=== PATIENT | male | born 2000 | race Caucasian/White ===

== ENCOUNTER 2025-04-19 02:43 | Emergency (ER) | payer MEDICAID ==
[~2025-04-19] VITALS: Ht 175.3 cm; Wt 76.0 kg
--- NOTE | 2025-04-19 02:52 | ELECTROCARDIOGRAPH REPORT ---
[facility] Test Date: 2025-04-19 Test Time: 02:51:53 Pat Name: DARIUS DIEHL Department: EMERGENCY ROOM Room: Gender: M Welt Insole Channeler: KYMBERLY : 2000 Requested By: TEZ VARGAS Order Number: [id number] Reading MD: Dr. Pk Enrique Measurements Intervals Davy Rate: 132 P: 75 NE: 136 QRS: 105 QRSD: 86 T: 1 QT: 295 QTc: 437 Interpretive Statements Sinus tachycardia Borderline right axis deviation Borderline T abnormalities, anterior leads Electronically Signed On 04-21-2025 21:15:[address] Pk Enrique Please click the below link to view image of tracing.
--- NOTE | 2025-04-19 03:21 | RADIOLOGY REPORT ---
CHEST RADIOGRAPH INDICATION: CP TECHNIQUE: Single frontal view of the chest was obtained COMPARISON: None FINDINGS: Lines and Tubes: None Lungs: Clear Pleura: No effusion. No pneumothorax. Cardiomediastinal contours: Unremarkable Bones: Unremarkable IMPRESSION: 1. No acute disease.
[2025-04-19 03:22] LABS: MEAN PLATELET VOLUME 7.4 FL (7.4-10.4); RED CELL DISTRIBUTION WIDTH 13.1 % (11.5-14.5)
[2025-04-19 03:26] LABS: INFLUENZA TYPE A ANTIGEN RAPID NEGATIVE (Negative); INFLUENZA TYPE B ANTIGEN RAPID NEGATIVE (Negative)
[2025-04-19] MEDS: normal saline 1000ml 1,000 ML IV ONE (03:33)
--- NOTE | 2025-04-19 03:40 | Physician Documentation ---
History of Present Illness ~ General Chief Complaint: Dizziness Stated Complaint: BODYACHES A ALS Time Seen by MD: 02:56 History of Present Illness Initial Comments CC: Body aches HPI: 24-year-old [place] stating that this evening a few hours prior to arrival he developed all over body aches, felt shaky in warm. He denies any cough, no vomiting, no abdominal pain, he denies any drug use, no burning with urination, no blood in urine or stool. No head or neck pain. No chest pain or shortness of breath. He states he did get a COVID vaccination in the past and did not get a flu shot this year. He does have a bandage on his right hand, he states there is a rash at his right hand that was treated with antibiotic ointment and then wrapped. He states his tetanus shot is up-to-date. Patient describes the body aches as diffuse muscle pains. ROS: Constitutional: Positive for feeling achy, subjective fever HENT: Negative for sore throat and rhinorrhea. Eyes:Negative for pain and redness. Respiratory: Negative for cough and shortness of breath. Cardiovascular: Negative for chest pain and palpitations. Gastrointestinal: Negative for nausea and vomiting. Genitourinary: Negative for dysuria and hematuria. Musculoskeletal: Negative for acute back pain and acute neck pain. Skin: Negative for rash and pruritus. Neurological: Negative for acute numbness or weakness. PHYSICAL EXAM: General Appearance: WDWN, No Distress, Cooperative, Awake Head: No Trauma. Scalp Normal Eyes: Lids normal, conjunctiva normal ENT: Mucous membranes normal, facial bones normal, lips normal, oropharynx normal Neck: Normal active FROM, non-tender with ROM, no meningeal signs, No JVD Back: Normal active FROM, non-tender with ROM, no CVAT Resp: Normal resp rate, normal flow, lungs clear to auscultation, no resp distress, no retractions Heart: Reg rhythm, no murmur Abd: Soft, non-tender, no guarding, no rebound, no mass Musc/Skel: No chest wall tenderness, Normal ROM UE's and LE's, No acute bone/joint abnormality or tenderness Skin: Right hand intertriginous area between right index and right middle finger with 1 x 2 cm area of erythema and scabbing no fluctuance no exudative Extremities: No edema Neuro: Motor 5/5 & Symmetric Bilat, CN 2-12 grossly intact and symmetric bilat. Oriented x4, speech normal. Psych: Mood & Affect: Normal, Depressed: 0, Awareness & insight normal ER COURSE -I have reviewed the triage note. History obtained from the patient -All Labs, if applicable, independently reviewed by me I checked in EMR for old Records Additional REPEAT EVALUATION: Results and plan of care discussed with patient, patient understands and is agreeable to plan and disposition MDM: 24-year-old male presents complaining of flu-like symptoms found to have right hand healing wound that we will be rib bandaged no evidence of sepsis lungs clear on physical exam doubtful lobar pneumonia, withdrawal also in the differential, patient is nontoxic and hemodynamically stable Additional REPEAT EVALUATION: 0340 Results and plan of care discussed with patient, patient understands and is agreeable to plan and disposition. Limited: (2 points from category 1 or one discussion with independent historian). Moderate: one of the following (3 points from category 1, or independent interpretations of tests performed by another physician/QHP: (ct,ecg,rad [place],rhythm strip,or comparing xray to prior), or discussion of tests or management with other professionals (not including [facility] ER doc/PA or family members.) High: (2 of 3 from : category 1 (3 points), independent interpretation of tests performed by another physician/QHP, and discussion of tests or management). Prior [facility] ER notes reviewed: Category 1: Number of Tests ordered or reviewed: [] Number of Independent Historians: [] Non [facility] ER notes reviewed: [] 1. 2. 3. Category 2: I independently interpreted the [] Category 3: Discussion with other professionals: [] [employer] Problems related to: [ ] Challenges with access to Primary Care or Outpatient Speciality Care [ ] Psychosocial circumstances such as mental health issues [ ] Social environment: such as violence or substance abuse [ ] Housing and economic circumstances: such as homelessness [ ] Employment and unemployment: such as recently loss of employment [ ] Occupational exposures or injuries: [ ] Accessing ED outside of normal PCP hours [ ] Language barrier: [ ] Primary support group, including family circumstances: Prescription Mangement: Rx strength meds given in ED: [] Rx given: [] [] I have reviewed the patient's medications and I do not recommend any changes at this time. (Applies only if checked) Comorbid conditions: [] Testing or interventions considered: [] Portions of this chart may have been created with [employer] voice recognition software. Occasional wrong-word or sound-alike substitutions may have occurred due to the inherent limitations of voice recognition software. Please read the chart carefully and recognize, using context, where these substitutions have occurred. Medication Reconciliation Allergies: Coded Allergies: No Known Allergies (Unverified , 04/19/25) Physical Exam Physical Exam Vital Signs: Temperature: 98.6, Source: Temporal, Heart Rate: 121, Respiratory Rate: 15, BP: 126/91, Pulse Oximetry: 97, Weight: 76.000 Progress Results/Orders Results/Orders Orders - TEZ VARGAS MD Chest,Single View (04/19/25 02:49) Monitor (04/19/25 02:49) Saline Lock (04/19/25 02:49) Oxygen (04/19/25 02:49) Covid19 Binax Poc Result Entry (04/19/25 02:58) Completed Orders - TEZ VARGAS MD Chest,Single View (04/19/25 02:49) Cbc/Diff (04/19/25 02:49) BMP (04/19/25 02:49) PBNP (04/19/25 02:49) Electrocardiogram (04/19/25 02:49) Hs Troponin I W Calculations (04/19/25 02:49) Drug Screen, Urine (04/19/25 02:56) Normal Saline 1000ml (0.9% Sodium Chlori (04/19/25 03:00) Influenza Type A&B Rapid Test (04/19/25 02:58) Urinalysis (04/19/25 03:42) Acetaminophen 325mg Tablet (Tylenol Tabl (04/19/25 05:05) Medications Received in ER Medications (Trade) Dose Ordered Sig/Marino Route PRN Reason Start Time Stop Time Status Last Admin Dose Admin Sodium Chloride 1,000 ml @ 1,000 mls/hr ONCE ONCE IV 04/19/25 03:00 04/19/25 03:59 DC 04/19/25 03:33 1,000 MLS/HR (Tylenol tablet) 650 mg ONCE ONCE PO 04/19/25 05:05 04/19/25 05:06 DC 04/19/25 05:12 650 MG Vital Signs 04/19/25 02:59 Temp 98.6 Pulse 121 Resp 15 B/P (MAP) 126/91 Pulse Ox 97 Laboratory Tests Test 04/19/25 03:05 04/19/25 04:50 White Blood Count 15.7 H Red Blood Count 5.22 Hemoglobin 15.6 Hematocrit 45.8 Mean Corpuscular Volume 87.6 Mean Corpuscular Hemoglobin 29.9 Mean Corpuscular Hemoglobin Concent 34.1 Red Cell Distribution Width 13.1 Platelet Count 291 Mean Platelet Volume 7.4 Neutrophils (%) (Auto) 85.7 H Lymphocytes (%) (Auto) 6.5 L Monocytes (%) (Auto) 7.5 Eosinophils (%) (Auto) 0 Basophils (%) (Auto) 0.3 Neutrophils # (Auto) 13.5 H Lymphocytes # (Auto) 1.0 L Monocytes # (Auto) 1.2 H Eosinophils # (Auto) 0.0 Basophils # (Auto) 0.0 CBC Comment Sodium Level 140 Potassium Level 4.0 Chloride Level 101 Carbon Dioxide Level 30.1 Anion Gap 9 Blood Urea Nitrogen 7 Creatinine 1.10 Estimated GFR/1.73 m2 82 BUN/Creatinine Ratio 6.4 L Glucose Level 119 H Calcium Level 9.3 Troponin I High Sensitivity 4 Pro-B-Type Natriuretic Peptide < 30 Albumin 4.3 Chemistry Comments Influenza Type A Antigen Negative Influenza Type B Antigen Negative SARS-CoV-2 Antigen (Rapid) Negative Urine Specimen Description Cln catch midstream Urine Color Yellow Urine Clarity Clear Urine pH 7.0 Urine Specific [place] 1.010 Urine Protein Negative Urine Glucose (UA) Negative Urine Ketones Negative Urine Occult Blood Negative Urine Nitrite Negative Urine Bilirubin Negative Urine Urobilinogen 0.2 Urine Leukocyte Esterase Negative Volume Urine Centrifuged 10 ml Urine Comment Urine Opiates Screen Negative Urine Methadone Screen Negative Urine Fentanyl Screen Negative Urine Barbiturates Screen Negative Urine Phencyclidine Screen Negative Urine Amphetamines Screen Negative Urine Benzodiazepines Screen Negative Urine Cocaine Screen Negative Urine Cannabinoids Screen Negative Drug Screen Comment Medical Decision Making Additional information obtaine: other Findings OTHER Differential Diagnosis OTHER Departure Time of Disposition: 06:21 Disposition: 01 HOME / SELF CARE / HOMELESS Impression: Primary Impression: Flu-like symptoms Additional Impression: Infection of hand Condition: Stable Discharge Instructions: Cellulitis, Adult, [id number], Weakness, [id number] Referrals: NO PRIMARY CARE PROVIDER (PCP) Prescriptions Sulfamethoxazole/Trimethoprim (Bactrim Ds Tablet) 800 Mg-160 Mg Tablet 1 TAB PO Q12H for 10 Days, #20 TAB Prov: TEZ VARGAS MD 04/19/25 Comments FOLLOW UP WITH YOUR PRIMARY CARE PHYSICIAN IN 2-3 DAYS FOR FURTHER EVALUATION Education Educated: Patient Educated regarding: diagnosis Signature Scribe Signature: XX Attestation: THE NOTE ACCURATELY REFLECTS WORK AND DECISIONS MADE BY ME.TEZ ESCOTO MD, MD Apr 19, 2025 03:40
[2025-04-19 03:42] LABS: CREATININE 1.10 MG/DL (0.60-1.10); PRO BRAIN NATRIURETIC PEPTIDE < 30 PG/ML (0-125); TOTAL CARBON DIOXIDE 30.1 MMOL/L (24-32); eCRCL 103 ML/MIN; eGFR 82 ML/MIN
[2025-04-19 05:29] LABS: LEUKOCYTE ESTERASE ,URINE NEGATIVE (Neg); NITRITES, URINE NEGATIVE (Neg); OCCULT BLOOD,URINE NEGATIVE (Neg)
[2025-04-19 05:37] LABS: URINE AMPHETAMINE SCREEN NEGATIVE (Neg); URINE BARBITUATE SCREEN NEGATIVE (Neg); URINE BENZODIAZEPINES SCREEN NEGATIVE (Neg); URINE CANNABINOID SCREEN NEGATIVE (Neg); URINE COCAINE SCREEN NEGATIVE (Neg); URINE METHADONE SCREEN NEGATIVE (Neg); URINE OPIATE SCREEN NEGATIVE (Neg); URINE PHENCYCLIDINE SCREEN NEGATIVE (Neg)
[2025-04-19 05:39] LABS: UA COLLECTION TYPE CLN CATCH MIDSTREAM
[2025-04-19] MEDS ORDERED: SULF1TAB49 PO (06:27)
[2025-04-19 06:38] VITALS: BP 122/88; PULSE 102; RESP 18; TEMP 98; O2SAT 98
[2025-04-19] MEDS: sulfamethoxazole/trimethoprim DS (800/160mg) tablet PO ONE (06:41)
[2025-04-19] MEDS: bacitracin 15gm ointment TP ONE (07:03)
== END 2025-04-19 07:04 | disposition home or self-care (01) ==
LOC: ER 02:45
DX: L08.9 Local infection of the skin and subcutaneous tissue, unspecified (principal); J11.1 Influenza due to unidentified influenza virus with other respiratory manifestations; R06.2 Wheezing; Z56.0 Unemployment, unspecified; Z59.00 Homelessness unspecified; Z20.822 Contact with and (suspected) exposure to COVID-19; Z79.899 Other long term (current) drug therapy
CPT/HCPCS: 36415; 71045; 80048; 80305; 81003; 83880; 84484; 85025; 87804; 87811; 93005; 96360; 99285; J7030; A6402